=== PATIENT | male | born 1935 | race Caucasian/White ===

== ENCOUNTER 2016-12-12 08:57 | Day surgery (SDC) | payer MEDICARE, OTHER ==
[2016-12-11 15:12] VITALS: BP 126/66
[2016-12-11 15:36] LABS: HEMOGLOBIN 13.2 g/dL (13.7-18.0)
[2016-12-11 15:49] LABS: ASPARTATE AMINO TRANSFERASE 18 U/L (15-37); BLOOD UREA NITROGEN 17 mg/dL (7-18)
[~2016-12-12] VITALS: Ht 172.7 cm; Wt 84.1 kg
[~2016-12-12 08:57] MED LIST: APIX5TAB PO; CARV12.52 PO; DIGO125T PO; FOLI-17 PO; HYDR200T PO; LEVO100T PO; LISI5TAB7 PO; METH2.5T PO; OMEP40CA6 PO; WARF1TAB9 PO; WARF2.5T PO; WARF5TAB PO
[2016-12-12] MEDS ORDERED: SODIUM CHLORIDE 0.9% 1,000 ML IV SCH (09:02)
[2016-12-12] MEDS ORDERED: NITROGLYCERIN 5 MG/ML, 10ML ONE (10:46)
[2016-12-12] MEDS ORDERED: HEPARIN 1,000 UNITS/ML, 10ML ONE (10:46)
[2016-12-12] MEDS ORDERED: LIDOCAINE 2%, 20ML ONE (10:46)
[2016-12-12] MEDS ORDERED: FENTANYL PF 100 MCG/2ML ONE (10:46)
[2016-12-12] MEDS ORDERED: TICAGRELOR 90 MG TABLET ONE (10:46)
[2016-12-12] MEDS ORDERED: MIDAZOLAM 1 MG/ML, 5ML ONE (10:46)
[2016-12-12] MEDS ORDERED: SODIUM CHLORIDE 0.9% 250 ML IV SCH (12:30)
== END 2016-12-12 14:18 | disposition home or self-care (01) ==
LOC: CACL 08:57 → EDSTATUS 15:30
PROVIDERS: ATTEND Internal Medicine Cardiovascular Disease
DX: I25.10 Atherosclerotic heart disease of native coronary artery without angina pectoris (principal); I48.2 Chronic atrial fibrillation; I10 Essential (primary) hypertension; Z95.0 Presence of cardiac pacemaker; Z86.73 Personal history of transient ischemic attack (TIA), and cerebral infarction without residual deficits
CPT/HCPCS: 36415; 71020; 80053; 85025; 85610; 85730; 93458; C1894; J2250; J3010; J3490; Q9967; J1644

== ENCOUNTER → 2020-10-11 | Outpatient (CLI) | payer MEDICARE, OTHER ==
[~2020-10-11] MED LIST changes: -DIGO125T PO; +DIGO125T85 PO; -HYDR200T PO; +HYDR200T72 PO; +OMEP40CA42 PO; -OMEP40CA6 PO; +REGADENOSON 0.4 MG/5 ML SYRINGE ONE; -WARF2.5T PO; +WARF2.5T2 PO; -WARF5TAB PO; +WARF5TAB2 PO
== END | disposition home or self-care (01) ==
LOC: CVU 10:05
PROVIDERS: ATTEND Internal Medicine Cardiovascular Disease
DX: I08.3 Combined rheumatic disorders of mitral, aortic and tricuspid valves (principal); R06.02 Shortness of breath; I25.10 Atherosclerotic heart disease of native coronary artery without angina pectoris; I11.9 Hypertensive heart disease without heart failure; Z87.891 Personal history of nicotine dependence
CPT/HCPCS: 78452; 93017; 93306; A9502; J2785